=== PATIENT | female | born 1935 | race Caucasian/White ===

== ENCOUNTER → 2016-12-18 | Outpatient (CLI) | payer MEDICARE, BC ==
[~2016-12-18] MED LIST: ALBUTEROL17 GM INH; ALDACTONE PO; AMIODARONE HCL100 MG PO; AMIODARONE PO; ASPIRIN81 M2 PO; CORDARONE200 M1 PO; COUMADIN2.5 MG PO; COUMADIN5 MG PO; DUONEB 2.5-0.5 M3 ML NEB; K-LOR20 MEQ PO; KEFLEX500 MG PO; LASIX20 MG PO; LOPRESSOR PO; MAGNESIUM OXID200 MG PO; NO MEDICATIONS; PREDNISONE PO; PREVACID PO; PROAIR HFA8.5 GM INH; SPIRIVA18 MCG INH; SYMBICORT INH; ZESTRIL5 MG PO; ZITHROMAX PO
--- NOTE | ~2016-12-18 | CT57 ---
[facility] A Service of [facility] RADIOLOGY TEXT RESULTS PATIENT: SHERLY HERNANDEZ LOCATION: [facility] : 33 UNIT #: [id number] AGE: [address]: Madalyn Hahn APRN SEX: F ORDER DR: [id number] [facility] [address] [place], [place] [address] [id number] O MR#: [id number] #: [id number] NAME: SHERLY HERNANDEZ. : 1935 SEX: F STUDY DATE/TIME: 12/18/2016 12:44 UNIT: [facility] ROOM: STUDY DESCRIPTION: CT Chest Wo Cont Attending Physician: Madalyn Hahn A.P.R.N. Ordering Physician: Madalyn Hahn A.P.R.N. Primary Care Physician: Ivelisse Knight M.D. MEDICAL IMAGING REPORT This report is preliminary unless electronic signature is present EXAM CT chest without contrast DATE 12/18/2016 HISTORY Follow up pulmonary nodules. Patient states shortness of breath. Coughing. Heart disease. Physician's history states lung nodule. COMPARISON CT chest 06/15/2016, 10/18/2014, 08/02/2014, 01/04/2010. PROCEDURE 2 mL noncontrast axial images through the chest. Sagittal and coronal reformatted images were obtained. This CT exam was performed with one or more of the following radiation dose reduction techniques: automatic exposure control, adjustment of mA and/or kV according to patient size, and iterative reconstruction. FINDINGS 7 mm noncalcified nodule within the posterior left upper lobe abutting the major fissures unchanged from 08/02/2014, in keeping with benign finding. No further surveillance is warranted with respect to this nodule. Previously described 5 mm ground-glass nodule that appeared in the left lower lobe on the 06/15/2016 examination has resolved. No new or suspicious pulmonary nodules are identified. There is chronic-appearing scarring within both lungs, most prominent within the right middle lobe. Zifd-cw-ofchdcza background emphysematous changes are present. There is some biapical scarring. [facility] A Service of [facility] & [facility] RADIOLOGY TEXT RESULTS PATIENT: SHERLY HERNANDEZ LOCATION: [facility] : 33 UNIT #: [id number] AGE: [address]: Madalyn Hahn REGULATORY AGENCY DIRECTOR SEX: F ORDER DR: Trace amount of fluid is seen within the pericardial recesses. A few scattered mediastinal lymph nodes are stable since 2013 in keeping with benign findings. The main pulmonary artery appears mildly enlarged, which is nonspecific and it may represent changes of pulmonary arterial hypertension. Stable cardiomegaly. Stable scarring within the lingula. Left renal cysts. Punctate nonobstructing right renal stone. Stable right adrenal adenoma. Benign appearing mildly complex cyst with internal calcifications in the spleen, unchanged since 2013. No acute osseous abnormalities are identified. There is benign appearing cystic dilation of the cisterna chyli, a normal variant, unchanged from 2014. IMPRESSION 1. Previously described 5 mm ground glass with its superior segment left lower lobe has resolved. 2. 7 mm nodule in the left upper lobe has been stable for over 2 years, consistent with a benign finding. No further followup is warranted with respect to this nodule. 3. No acute chest findings. 4. Kovw-xi-ulaccbmc generalized emphysematous changes. 5. Central pulmonary artery remains enlarged. Correlate clinically for pulmonary arterial hypertension. Stable cardiomegaly. 6. Please refer to the body of the report for additional incidental CT findings. Dictated by... Christina Farley M.D. THIS IS AN ELECTRONICALLY VERIFIED REPORT Christina Farley M.D. at 12/19/2016 9:41 AM [facility]/moy TD: 12/18/2016 18:12 JOB #: [id number] MEDICAL IMAGING REPORT Page 1 of 1 COPY
== END | disposition home or self-care (01) ==
LOC: CCAT 12:16
DX: R91.8 Other nonspecific abnormal finding of lung field (principal); R91.1 Solitary pulmonary nodule; I28.8 Other diseases of pulmonary vessels; I51.7 Cardiomegaly
CPT/HCPCS: 71250

== ENCOUNTER 2017-01-15 20:53 | Emergency (ER) | payer MEDICARE, BC ==
--- NOTE | ~2017-01-15 | EKG ---
PATIENT: SHERLY HERNANDEZ UNIT #: [id number] Ventricular Rate: 70 BPM Atrial Rate: 70 BPM P-R Interval: 138 ms QRS Duration: 98 ms Q-T Interval: 480 ms QTC Calculation(Bezet): 518 ms P [place]: 39 degrees Calculated R [place]: 11 degrees Calculated T [place]: 54 degrees Diagnosis Line: Sinus rhythm with Premature atrial complexes Diagnosis Line: Septal infarct Possible , age undetermined Diagnosis Line: Prolonged QT Diagnosis Line: Abnormal ECG Diagnosis Line: No previous ECGs available Diagnosis Line: Confirmed by STAN CLANCY MD ([id number]) on 01/16/2017 Diagnosis Line: 7:41:53 AM INTERPRETING MD: ASTON CHOWDHURY
--- NOTE | ~2017-01-15 | CT52 ---
[facility] A Service [facility] RADIOLOGY TEXT RESULTS PATIENT: SHERLY HERNANDEZ LOCATION: [facility] : 33 UNIT #: [id number] AGE: [address]: Gerardo Tejeda MD SEX: F ORDER DR: [id number] [facility] [address] [place], [place] [address] [id number] E MR#: [id number] Acc #: [id number] NAME: SHERLY HERNANDEZ. : 1935 SEX: F STUDY DATE/TIME: 01/15/2017 23:27 UNIT: [facility] ROOM: STUDY DESCRIPTION: CT Cervical Spine Wo Cont Attending Physician: Gerardo Tejeda M.D. Ordering Physician: Gerardo Tejeda M.D. Primary Care Physician: Ivelisse Knight M.D. MEDICAL IMAGING REPORT This report is preliminary unless electronic signature is present EXAM Cervical spine CT scan without contrast INDICATIONS Fall this evening with syncope and patient does not remember falling. Patient had trauma to face. Evaluate for cervical spine injury. TECHNIQUE Axial 2-mm images were obtained through the cervical spine and sagittal and coronal reconstructions were generated. This CT exam was performed with one or more of the following radiation dose reduction techniques: Automatic exposure control, adjustment of mA and/or kV according to patient size, and iterative reconstruction. FINDINGS There is disc space narrowing at C3-4, 4-5, 5-6 and 6-7. There is no subluxation or fracture. There are facet degenerative changes. IMPRESSION Diffuse degenerative changes. No evidence of acute injury. Dictated by... Hussain Capellan M.D. THIS IS AN ELECTRONICALLY VERIFIED REPORT Hussain Capellan M.D. at 01/16/2017 3:38 AM FEL/lm TD: 01/16/2017 02:15 JOB #: [id number] [facility] A Service [facility] RADIOLOGY TEXT RESULTS PATIENT: SHERLY HERNANDEZ LOCATION: [facility] : 33 UNIT #: [id number] AGE: [address]: Gerardo Tejeda MD SEX: F ORDER DR: MEDICAL IMAGING REPORT Page 1 of 1 COPY
--- NOTE | ~2017-01-15 | CT71 ---
[facility] A Service of [facility] RADIOLOGY TEXT RESULTS PATIENT: SHERLY HERNANDEZ LOCATION: [facility] : 33 UNIT #: [id number] AGE: [address]: Gerardo Tejeda MD SEX: F ORDER DR: [id number] [facility] [address] [place], [place] [address] [id number] E MR#: [id number] Acc #: [id number] NAME: SHERLY HERNANDEZ. : 1935 SEX: F STUDY DATE/TIME: 01/15/2017 23:25 UNIT: [facility] ROOM: STUDY DESCRIPTION: CT Head Wo Contrast Attending Physician: Gerardo Tejeda M.D. Ordering Physician: Gerardo Tejeda M.D. Primary Care Physician: Ivelisse Knight M.D. MEDICAL IMAGING REPORT This report is preliminary unless electronic signature is present EXAM CT scan of the head without contrast INDICATION Fall today just prior to admission with possible loss of consciousness and nosebleed. The patient does not remember falling. Syncope. This CT exam was performed with one or more of the following radiation dose reduction techniques: automatic exposure control, adjustment of mA and/or kV according to patient size, and iterative reconstruction. FINDINGS Axial noncontrast images were obtained from the skull base to the vertex. Ventricular size and configuration are normal. There is no evidence of acute infarct or hemorrhage. There are no extra-axial fluid collections. No mass lesion or mass effect is seen. There are no skull fractures. IMPRESSION Normal noncontrast head CT. Dictated by... Hussain Capellan M.D. THIS IS AN ELECTRONICALLY VERIFIED REPORT Hussain Capellan M.D. at 01/16/2017 3:38 AM MAX/fritz TD: 01/16/2017 02:17 JOB #: [id number] MEDICAL IMAGING REPORT [facility] A Service [facility] RADIOLOGY TEXT RESULTS PATIENT: SHERLY HERNANDEZ LOCATION: [facility] : 33 UNIT #: [id number] AGE: [address]: Gerardo Tejeda MD SEX: F ORDER DR: Page 1 of 1 COPY
[2017-01-15 23:04] LABS: CALCIUM SERUM 8.8 mg/dL (8.4-10.2); CREATININE SERUM 0.7 mg/dL (0.6-1.4); GLOM FILT RATE Estimated 80.1 mL/min (>60); INR 2.1; POTASSIUM 3.3 mmol/L (3.5-5.1)
[2017-01-15 23:11] LABS: PROTHROMBIN TIME (PATIENT) 22.5 SECONDS (9.6-11.5)
[2017-01-15 23:16] LABS: BASOPHIL# 0.1 X10e3 (0-0.3); BASOPHIL% 0.7 % (0-2.5); EOSINOPHIL# 0.1 X10e3 (0-0.7); EOSINOPHIL% 1.4 % (0.0-7.0); HEMATOCRIT 38.4 % (35.0-45.0); HEMOGLOBIN 11.6 gm/dL (12.0-16.0); LYMPHOCYTE# 0.7 X10e3 (1.0-3.5); LYMPHOCYTE% 9.9 % (17.0-45.0); MEAN CELL VOLUME 83.5 FL (83-96); MEAN CORPUSCULAR HEMOGLOBIN 25.2 PG (28-34); MEAN CORPUSCULAR HGB CONC 30.2 g/dL (30-36); MEAN PLATELET VOLUME 7.7 FL (6.5-11.5); MONOCYTE# 0.6 X10e3 (0-1.0); MONOCYTE% 7.7 % (3.0-12.0); NEUTROPHIL# 5.8 X10e3 (1.5-7.1); NEUTROPHIL% 80.3 % (40-75); PLATELET COUNT 315 X10e3 (140-420); RED CELL DISTRIBUTION WIDTH 17.5 % (11.0-15.5); WHITE BLOOD COUNT 7.3 X10e3 (4.0-10.5)
[2017-01-15 23:17] LABS: DIFF IND YES
[2017-01-15 23:50] LABS: ANISOCYTOSIS SL; HYPOCHROMIA MOD; OVALOCYTES PRESENT; PLATELET ESTIMATE NORMAL (NORMAL)
[2017-01-15 23:51] LABS: TARGET CELLS SL
== END 2017-01-16 01:56 | disposition home or self-care (01) ==
LOC: CED 20:53
PROVIDERS: Emergency Medicine
DX: S00.83XA Contusion of other part of head, initial encounter (principal); F10.129 Alcohol abuse with intoxication, unspecified; Z23 Encounter for immunization; Z79.01 Long term (current) use of anticoagulants; Z79.899 Other long term (current) drug therapy; W19.XXXA Unspecified fall, initial encounter; Y92.009 Unspecified place in unspecified non-institutional (private) residence as the place of occurrence of the external cause
CPT/HCPCS: 36415; 70450; 72125; 80048; 85025; 85610; 90471; 90715; 93005; 99284; G0480

== ENCOUNTER → 2017-04-02 | Outpatient (CLI) | payer MEDICARE, BC ==
--- NOTE | ~2017-04-02 | US136 ---
[facility] A Service [facility] RADIOLOGY TEXT RESULTS PATIENT: SHERLY HERNANDEZ LOCATION: [facility] : 33 UNIT #: [id number] AGE: [address]: Ivelisse Knight MD SEX: F ORDER DR: [id number] [id number] [place], [place] [address] [id number] O MR#: [id number] Acc #: [id number] NAME: SHERLY HERNANDEZ. : 1935 SEX: F STUDY DATE/TIME: 04/02/2017 13:41 UNIT: [facility] ROOM: STUDY DESCRIPTION: U/L Ext Art Study Ltd Bil Attending Physician: Ivelisse Knight M.D. Referring Physician: Ivelisse Knight M.D. Ordering Physician: Ivelisse Knight M.D. Primary Care Physician: Ivelisse Knight M.D. MEDICAL IMAGING REPORT This report is preliminary unless electronic signature is present DATE OF EXAM 04/02/2017 EXAM Bilateral lower extremity DAMON. HISTORY Claudication. FINDINGS The right brachial pressure was 144, left is 136. Right dorsalis pedis pressure 144 and posterior tibial 148 for an DAMON of 1.03 and a first toe pressure of 117 mmHg. Left dorsalis pedis pressure is 139 and posterior tibial 157 for an DAMON of 1.09 and a first toe pressure of 117 mmHg. PVR waveforms at the ankle level are intact and symmetric bilateral as well as the first digital waveforms. Arterial waveforms of the dorsalis pedis and posterior tibial arteries demonstrated triphasic waveforms bilateral. IMPRESSION No arterial insufficiency in either the right or the left lower extremity with adequate perfusion of the first toes. Dictated by... Alejandra Melgoza M.D. [facility] A Service [facility] RADIOLOGY TEXT RESULTS PATIENT: SHERLY HERNANDEZ LOCATION: [facility] : 33 UNIT #: [id number] AGE: [address]: Ivelisse Knight MD SEX: F ORDER DR: THIS IS AN ELECTRONICALLY VERIFIED REPORT Alejandra Melgoza M.D. at 04/04/2017 7:33 AM [facility]/paco TD: 04/02/2017 21:15 JOB #: [id number] MEDICAL IMAGING REPORT Page 1 of 1 COPY
== END | disposition home or self-care (01) ==
LOC: CNIV 14:00
DX: I73.9 Peripheral vascular disease, unspecified (principal)
CPT/HCPCS: 93922